=== PATIENT | male | born 1950 | race Caucasian/White ===

== ENCOUNTER 2022-09-11 10:37 | Emergency (ER) | payer MEDICARE ==
[2022-09-11 10:47] VITALS: BP 146/66
[2022-09-11] MEDS ORDERED: ATORVASTATIN CA80 MG PO (11:05)
[2022-09-11] MEDS ORDERED: ISOSORBIDE30 MG PO (11:05)
[2022-09-11] MEDS ORDERED: AMLODIPINE BES2.5 MG PO (11:05)
[2022-09-11] MEDS ORDERED: FINASTERIDE5 M1 PO (11:05)
[2022-09-11] MEDS ORDERED: HYTRIN 1MG C1 MG/CAP PO (11:06)
[2022-09-11] MEDS ORDERED: METOPROLOL SUCC25 M1 PO (11:06)
[2022-09-11] MEDS ORDERED: LOSARTAN POTASS50 M1 PO (11:06)
[2022-09-11] MEDS ORDERED: NORCO 325 MG-7.1 TA1 PO (14:15)
[2022-09-11] MEDS ORDERED: CEPHALEXIN500 M1 PO (14:15)
== END 2022-09-11 14:25 | disposition home or self-care (01) ==
LOC: ED 10:37
DX: S61.215A Laceration without foreign body of left ring finger without damage to nail, initial encounter (principal); S61.217A Laceration without foreign body of left little finger without damage to nail, initial encounter; Z23 Encounter for immunization; Z28.310 Unvaccinated for COVID-19; W23.0XXA Caught, crushed, jammed, or pinched between moving objects, initial encounter
CPT/HCPCS: 90715; J2270; J2405